=== PATIENT | female | born 1950 | race Caucasian/White ===

== ENCOUNTER → 2023-05-20 12:51 | Outpatient (CLI) | payer MEDICARE, OTHER, SELFPAY ==
--- NOTE | 2023-05-20 | DI.CT.S_ITS ---
PROCEDURE: CT KNEE LEFT WITHOUT CON INDICATIONS: ANKLE ARTHRITIS TECHNIQUE: Noncontrast 1-1.5 mm axial sections acquired from the mid-patella to the proximal tibia, with coronal and sagittal reformats. COMPARISON: None. FINDINGS: Image quality: Excellent. Bones: Postsurgical changes are seen from a medial unicompartmental arthroplasty. Metal hardware components are in expected positions without signs of loosening. There is generalized osteopenia. No acute osseous fracture is seen. No suspicious intraosseous lesion. Uyxj-mt-rmwxwbce joint space narrowing is seen in the lateral femorotibial and patellofemoral compartments. There is mild patella jonathon. Soft tissues: Trace joint effusion. Chondrocalcinosis. However, the articular cartilages, menisci, ligaments, and tendons are not well evaluated on standard CT. No significant medial popliteal cyst is seen. The musculature surrounding the knee is age-appropriate in bulk. IMPRESSION: 1. Postsurgical changes from medial unicompartmental arthroplasty. No CT signs of hardware complication or acute fracture. 2. Chondrocalcinosis. Differential diagnosis includes but is not limited to CPPD, hyperparathyroidism, and hemochromatosis. 3. Qqvq-ku-jcplztls osteoarthrosis in the lateral femorotibial and patellofemoral compartments. 4. Patella jonathon. Approved by: eH Bowen M.D. on 05/21/2023 at 8:54
--- NOTE | 2023-05-20 13:08 | DI.CT.S_ITS ---
PROCEDURE: CT ANKLE LEFT WITHOUT INDICATIONS: ANKLE ARTHRITIS TECHNIQUE: Noncontrast 1-1.5 mm axial sections acquired from above the tibiotalar joint to the bottom of the calcaneus, with coronal and sagittal reformats. COMPARISON: [facility], CR, XR ANKLE 3+ VIEWS LEFT, 03/15/2023, 11:18. [facility] [place], CR, XR ANKLE 3 VIEWS WEIGHT BEARING LEFT, 04/06/2023, 13:22. FINDINGS: Image quality: Excellent. Bones: Severe joint space narrowing is seen at the mortise joint with subchondral sclerosis, marginal osteophyte formation, and remodeling of the articular surfaces. An ossification is noted along the anterior aspect of the distal fibula that is likely related to prior trauma versus secondary degenerative changes. Moderate to severe degenerative changes are seen at the posterior subtalar facet. There is suspected hindfoot valgus with degenerative changes between the distal fibula and the superolateral aspect of the posterior calcaneus. There is mild diffuse joint space narrowing throughout the remainder of the hindfoot and midfoot. Severe degenerative changes are seen at the 1st metatarsophalangeal joint and metatarsal sesamoid degenerative changes are noted. Scattered degenerative changes at the lesser metatarsophalangeal joints and the interphalangeal joints of the toes. Bones are osteopenic. Soft tissues: Mild nonspecific subcutaneous edema surrounding the ankle. Chondrocalcinosis. The articular cartilages, ligaments, and tendons are not well evaluated with standard CT. 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 Achilles tendon appears mildly thickened. Osteophyte formation is seen in the region of the tarsal tunnel with superficial displacement of the posterior tibial neurovascular bundle. There is associated narrowing of the groove for the flexor hallucis longus tendon at the posterior medial talus. The intrinsic foot musculature is age-appropriate in bulk. IMPRESSION: 1. Severe mortise joint osteoarthrosis with remodeling of the articular surfaces and resulting hindfoot valgus. Moderate to severe degenerative changes are seen at the posterior subtalar facet and there are degenerative changes between the distal fibula and the superolateral calcaneus. 2. Severe 1st metatarsophalangeal osteoarthrosis. Mild degenerative changes are seen throughout the remainder of the foot. 3. Osteophyte is seen projecting into the tarsal tunnel with displacement of the posterior tibial neurovascular bundle and narrowing of the groove for the flexor hallucis longus tendon. Recommend correlation for neurovascular or tendon impingement. 4. Suspected longitudinal split tearing of the peroneus brevis tendon at the level of the distal fibula, although the tendons are not well evaluated with CT. 5. Chondrocalcinosis. Approved by: He Bowen M.D. on 05/21/2023 at 9:03
[2023-05-20 15:01] LABS: Add Manual Diff / Slide Review NO; Basophils Absolute Auto 100 /uL (0-100); Basophils Percent Auto 0.6 % (0-2); Eosinophils Absolute Auto 100 /uL (0-450); Eosinophils Percent Auto 1.2 % (2-4); Hematocrit 38.2 % (36-46); Hemoglobin 12.9 g/dL (12.0-16.0); Lymphocytes Absolute Auto 2500 /uL (1100-4500); Lymphocytes Percent Auto 30.9 % (25-40); Mean Corpuscular HGB Conc 33.7 % (30-36); Mean Corpuscular Hemoglobin 29.8 PG (26-34); Mean Corpuscular Volume 88.4 fL (80-100); Monocytes Absolute Auto 700 /uL (0-900); Monocytes Percent Auto 8.6 % (3-14); Neutrophils Absolute Auto 4700 /uL (1500-7000); Neutrophils Percent Auto 58.7 % (50-75); Platelet Count 350 X10^3/uL (150-400); Red Blood Cell Count 4.32 X10^6/uL (4.0-5.2); Red Cell Distribution Width 13.9 % (11.6-14.8)
[2023-05-20 15:16] LABS: Hemoglobin A1C% w Est Avg Glu 5.6 % (4.0-6.0)
[2023-05-20 15:25] LABS: Albumin 4.3 g/dL (3.5-5.0); Albumin Globulin Ratio 1.3 (1.0-2.8); Alkaline Phosphatase 82 U/L (38-126); Aspartate Aminotransferase 41 IU/L (14-36); BUN Creatinine Ratio 15.2 (6-22); Bilirubin Total 0.9 mg/dL (0.2-1.3); Blood Urea Nitrogen 10 mg/dL (7-17); Calcium 9.7 mg/dL (8.4-10.2); Chloride 103 mmol/L (98-107); Cholesterol 156 mg/dL (140-199); Estimated Glomerular Filt Rate > 60 mL/min (>60); Globulin 3.4 g/dL (1.7-4.1); Glucose 93 mg/dL (80-110); HDL Cholesterol 59 mg/dL (40-60); HEMOLYSIS < 15 (0-50); LDL Cholesterol Calculated 80 mg/dL (<100); Total Protein 7.7 g/dL (6.3-8.2); Triglycerides 83 mg/dL (35-150); Uric Acid 4.7 mg/dL (2.5-6.2)
[2023-05-20 15:41] LABS: Vitamin D 25 Hydroxy (D3) 75.7 ng/mL (30.0-100.0)
[2023-05-20 15:48] LABS: Free T3, Triiodothyronine Free 4.84 pg/mL (2.77-5.27); Free T4, Direct Thyroxine 1.33 ng/dL (0.78-2.19)
[2023-05-20 16:10] LABS: Thyroid Stimulating Hormone < 0.015 uIU/mL (0.47-4.68)
[2023-05-20 16:48] LABS: Appearance Urine UA CLEAR; Bilirubin Urine UA NEGATIVE (NEGATIVE); Color Urine UA YELLOW; Glucose Urine UA NEGATIVE (Negative); Ketones Urine UA NEGATIVE (NEGATIVE); Leukocyte Esterase Urine UA NEGATIVE (NEGATIVE); Nitrite Urine UA NEGATIVE (Negative); Occult Blood Urine UA NEGATIVE (Negative); Protein Urine UA NEGATIVE (Negative); Specific Gravity Urine UA <=1.005 (1.000-1.035); Urobilinogen Urine UA 0.2 E.U./dL (0.2)
[2023-05-20 17:01] LABS: RBC Urine 0-1/HPF (0-5/HPF); WBC Urine 0-1/HPF (0-5/HPF)
[2023-05-20 17:02] LABS: Bacteria Urine None Seen; Culture Indicated Urine Cult Not Indicated; Squamous Epithelial Cell Urine 0-1 /HPF (0-5/HPF)
[2023-05-20 17:03] LABS: Alanine Aminotransferase 40 IU/L (<35); Carbon Dioxide 20 mmol/L (22-32); Creatine Kinase 70 U/L (30-135); Potassium 4.2 mmol/L (3.4-5.1); Sodium 136 mmol/L (137-145)
== END ==
PROVIDERS: Family Provider Nurse Practitioner Family; PCP Internal Medicine; Referring Provider Orthopaedic Surgery Foot and Ankle Surgery; Visit Provider Orthopaedic Surgery Foot and Ankle Surgery
DX: Z01.818 Encounter for other preprocedural examination (principal); Z01.812 Encounter for preprocedural laboratory examination; Z00.00 Encounter for general adult medical examination without abnormal findings; M17.12 Unilateral primary osteoarthritis, left knee; M11.262 Other chondrocalcinosis, left knee; M22.8X1 Other disorders of patella, right knee; M19.072 Primary osteoarthritis, left ankle and foot; M11.272 Other chondrocalcinosis, left ankle and foot; M21.072 Valgus deformity, not elsewhere classified, left ankle; M25.50 Pain in unspecified joint; R74.8 Abnormal levels of other serum enzymes; R73.9 Hyperglycemia, unspecified; I10 Essential (primary) hypertension; R63.4 Abnormal weight loss; K57.92 Diverticulitis of intestine, part unspecified, without perforation or abscess without bleeding; E03.9 Hypothyroidism, unspecified; R73.01 Impaired fasting glucose; L40.9 Psoriasis, unspecified; Z79.899 Other long term (current) drug therapy; Z96.652 Presence of left artificial knee joint
CPT/HCPCS: 36415; 73700; 80053; 80061; 81001; 82306; 82550; 83036; 84439; 84443; 84481; 84550; 85025; 93005; 93010

== ENCOUNTER 2023-07-14 07:00 | Day surgery (SDC) | payer MEDICARE, OTHER, SELFPAY ==
[2023-07-12 14:48] VITALS: BMI 29.0
[2023-07-14] VITALS (19 sets, daily range): BP systolic 98–112; BP diastolic 44–65; PULSE 79–103; RESP 12–20; TEMP 36.2–37.3; O2SAT 92–98; BMI 29.0
--- NOTE | 2023-07-14 | DI.RAD.S_ITS ---
PROCEDURE: XR ANKLE LT MIN 3V INDICATIONS: TOTAL ANKLE ARTHOPLASTY TECHNIQUE: Fluoroscopic guidance utilized for a left ankle arthroplasty. COMPARISON: None. FINDINGS: Fluoroscopic images submitted for a left ankle arthroplasty. Please see operative note for further discussion. IMPRESSION: Fluoroscopic guidance. Dictated by: Sridhar Hudson M.D. on 07/14/2023 at 13:37 Approved by: Sridhar Hudson M.D. on 07/14/2023 at 13:37
--- NOTE | 2023-07-14 07:58 | PM.PREOP ---
Pre-operative Note Interval Note History & Physical reviewed/Exam performed by Physician: Yes Changes to H&P: No
--- NOTE | 2023-07-14 08:06 | P.OP_ITS ---
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 She is failed extensive conservative treatment. She has been indicated for total ankle arthroplasty. She also has an Achilles contracture. We discussed risks benefits and alternatives of the procedure including associated procedures with the ankle arthroplasty including lengthening of the Achilles tendon or gastroc, support of the malleoli and possible ligamentous balancing procedures. The risks and benefits of the procedure have been discussed with the patient and given the opportunity to ask questions. The risks of surgery include but are not limited to infection, fracture, loosening, persistence of pain, damage to nerves and blood vessels, wound healing problems, adjacent joint arthritis, DVT, PE, need for additional procedures, generalized dissatisfaction with the procedure, cardiopulmonary complications and . The patient expressed a thorough understanding of the risks and benefits of surgery and has elected to proceed. Consent was signed in the office. During the operation, the services of a physician surgical services asst were medically indicated and necessary to provide the exposure of the operative site for the surgical procedure and to maintain the limb in a proper position to carry out the operation safely and efficiently. Without a qualified assistant project engineer being present this would extended the operative procedure and made the procedure technically more difficult to perform. Surgeon: Ivett Allred Noteman: Willie Fowler Anesthesia Type: General, Peripheral nerve block and Local Operative Notes Findings: End-stage valgus ankle arthritis left ankle Achilles contracture left ankle Numerous ossicles from previous sprains. After gutter debridement there was laxity of the lateral ligaments this was reconstructed with a modified Brostrom Ruelas procedure through a separate incision Closure Type: primary Specimen(s): none sent Prosthetic devices, grafts, tissues, transplants, or devices: Chalo inbone total ankle arthroplasty Inbone tibia size 4 long, left Inbone stem top stem 16 mm, mid stem 16 mm, mid stem 16 mm, base 18 mm Inbone talus size size 4 with 10 mm stem Polyethylene 11 mm size 4, sulcus Arthrex 3.0 x 14.5 suture anchor Estimated Blood Loss (mL): 100 Tourniquet time (min): 130 Procedure in detail: The patient was seen in the preoperative area the site of surgery was marked informed consent confirmed. Final questions were answered. The patient was also seen by the anesthesiologist and a peripheral nerve block was placed for postoperative pain control. The patient was brought back to the operating room by the anesthesia team positioned supine on the operative table. All bony prominences were well padded. A well-padded thigh tourniquet was placed. The ipsilateral thigh bump was placed. General anesthesia was administered. A Hanson catheter was placed for the duration of the procedure. This was removed at the end of the procedure. The left lower extremities prepped and draped in the standard sterile fashion with a prescub then standard prep. The left lower extremity was then draped in the standard sterile fashion. Formal time-out procedure was performed confirming the patient's side and site of surgery administration of appropriate preoperative antibiotics which in this case were 2 g of Ancef. All were in agreement. Implants were in the room and available. Tendo-Achilles lengthening. Prior to tourniquet elevation the leg was evaluated. There was a tendo-Achilles contracture with dorsiflexion to 0 not significantly changing with knee flexion. Decision was made for tendo-Achilles lengthening. Three small incisions were made at 2 cm intervals along the midline of the Achilles for a triple radha section Achilles tendon lengthening. Incision was made down through the skin to the level of the Achilles tendon. The distal radha section was taken dividing through the tendon to the lateral side. The separate incision for the mid radha transection was taken to the medial side and the most proximal incision again taken to a radha section to the lateral side. Following this procedure the ankle was dorsiflexed with a clear and audible stretch staining approximately 20? of dorsiflexion with the knee extended. Attention was then turned to the left lower extremity an Esmarch bandage was used for exsanguination the tourniquet was elevated to 250 mmHg and stayed there for 130 minutes. Standard anterior approach to the ankle was drawn out on the leg approximately 12 cm incision was taken about 1 cm lateral to the tibial crest and extended longitudinally bisecting the tibiotalar joint extending to the talonavicular joint. This was taken down through the skin and subcutaneous tissues care was taken to isolate and protect the superficial peroneal nerve branch. Next the extensor retinaculum was opened and tagged with an 0 Vicryl for later repair. The EHL tendon sheath was opened and the EHL and neurovascular bundle were retracted laterally and the tibialis anterior was capped into its sheath and retracted medially. This brought us down directly on the anterior tibia. Dissection was taken all the way to the talonavicular joint to expose the talus. The capsule was divided and retracted. The joint demonstrated end-stage tibiotalar arthritis with large anterior distal tibial spurs and a medial large talar spur. There was a separate large distal tibia ossicles anteriorly and down in the lateral gutter. The Bovie cautery and elevators were used to remove the periosteum along the anterior tibia and expose the joint. Gelpi and Weitlaner retractors were used to protect the EHL and neurovascular bundle. The talus was mobilized. There was some asymmetric wear with valgus talar tilt narrowing on the lateral side. The inbone prophecy guide was then fit to the tibia and pinned in place. This was checked against the preoperative plans and on intraoperative fluoroscopy. Then pins were completed. The guide was removed and the cutting guide placed. The initial tibial cut were completed after the anti rotation notch was drilled. The anterior part of the tibial cut was removed then attention was turned to the talus. The talus guide was fit to the bone and checked on the preoperative plan and intraoperative x-ray then pinned in place. This was then removed and the cutting guide placed. The talus was cut according to the plan over resecting medially and under resecting laterally. Once this was removed rongeur pituitaries and osteotomes and the corner gutters were once again used to complete removal of the posterior part of the tibia. Once this was debrided the next guide was placed along with the jig and this was secured with the foot in dorsiflexion. The trocar was marked for the entry point on the plantar foot and a 1 cm incision made blunt dissection was carried down to the calcaneus. The trocar and cannula were advanced to the bone and then the 6 mm opening drill was used to pick drill through the calcaneus and talus and this was aligned on AP and lateral planes in the tibia and under careful fluoroscopic visualization this was directed central in the tibial canal and drilled for 51 mm. This corresponded with the planned implant. Next the opening drill was removed and the 1st Reamer was placed in through the anterior incision and advanced to 51 mm this was a 12 then followed by a 14 mm Reamer then a 16 just distally for the base and then an 18 was used just to create a little spare room for the base. Once reaming was completed the wound was irrigated. The Sizer for the for long was confirmed. Next the stems were placed starting with the top 16 then to mid 16 and then 18 bases were assembled in the standard fashion and advanced under fluoroscopic guidance then the base plate was secured in place. Excellent alignment was obtained on AP and lateral imaging. Following this attention was turned back to the talus the talar peg sites were overdrilled with the trial in place and the central stem was then drilled. A size 4 fit well anterior to posterior and lined align medial and lateral. The final talus was then opened and impacted in place in the standard fashion. Trial poly was placed. There was noted to be still some gutter impingement medial and laterally along with some of the separate ossicles that were noted on the preoperative CT scan. Sagittal saw was brought in again to clean up the gutters medially and laterally and the pituitary rongeur was used to remove the gutter debris this included contouring the distal fibula. As suspected after this there was some laxity in the lateral ligaments which was preoperative via the anticipated based on the patient's multiple sprains and numerous ossicles. And a plan was made for Brostrom Ruelas a ligamentous balancing. First the final poly was placed with a 11 mm poly that demonstrated excellent range of motion and gutter appearance. There was ample bridge of the medial malleolus and did not require reinforcement. Lateral ligament balancing, modified Brostrom procedure: Separate incision was made laterally just posterior to the distal fibula in line with the alignment of the lateral ligaments the periosteum off for the fibula was isolated and reflected there was a large separate loose ossicle at the distal fibula that was removed. The lateral ligaments were tenuous as expected. A 3.0 suture anchor from the Arthrex set was then used to perform the lateral ligament reconstruction this was placed into the talus bone and then brought through drill holes with a 2-0 drill through the distal fibula and tied over a bone bridge. Remaining suture was looped back through the remnants of the lateral ankle ligaments and then tied over the previous repair for a multi strand reconstruction. Once this was completed the ankle was tested through range of motion as talar tilt was stable. Ankle dorsiflexion plantar flexion were excellent least 15? of dorsiflexion and 40? of plantar flexion. Final fluoroscopic x-rays in AP mortise and lateral were obtained. By this time tourniquet had been released there was hemostasis. The wounds were thoroughly irrigated. The incisions were closed laterally at the Brostrom Ruelas site with 3-0 Vicryl 4-0 Monocryl and 3-0 nylon suture. Plantar foot incision was closed with 3-0 nylon. The ankle arthrotomy incision was closed with 0 Vicryl in the capsule. 2-0 PDS in the extensor retinaculum. 4-0 Monocryl subcutaneously and 3-0 nylon in the skin. 22 cc of 0.25% Marcaine with epinephrine were injected for local anesthetic. A well-padded sterile dressing was applied with Xeroform gauze Webril bulky Zachary es cotton and posterior and a U splint. The patient was awoken from anesthesia and taken to recovery unit in good condition there were no immediate complications from this procedure. All counts were correct. L Complications: none Post-operative Condition: stable Disposition: PACU Plan for aftercare: Nonweightbearing or touchdown for balance left lower extremity Keep splint in place until follow up in clinic in 2 weeks for wound check. We will use Lovenox 40 mg subcutaneous daily for DVT prophylaxis x4 weeks then switch to aspirin 325 daily for 2 more weeks
[2023-07-14] MEDS: ACETAMINOPHEN 325 MG TABLET 975 MG PO (08:22)
[2023-07-14] MEDS: LACTATED RINGERS 1,000 ML 42 ML IV ×3 (08:24→15:34)
[2023-07-14] MEDS: CEFAZOLIN 2 GM/100 ML PREMIX 100 ML IV ×2 (09:15→18:14)
[2023-07-14] MEDS: TRANEXAMIC ACID 1,000 MG in SODIUM CHLORIDE 0.9% 100 ML 200 MG IV (09:30)
--- NOTE | 2023-07-14 09:37 | SUR.OPER ---
Addendum entered by Trinh Crowley R.N. 07/14/23 11:22: Safety belt at abdomen, not thigh Original Note: Supine on padded OR bed, head on pillow, arms secured on padded arm boards at <90 degrees abduction, legs uncrossed, safety belt at thigh, tape over blanket over non-operative leg, operative leg bumped with bath blankets.
[2023-07-14] MEDS: BUPIVACAINE 0.25% W/ EPI 30 ML VIAL 60 ML INJ (09:41)
--- NOTE | 2023-07-14 14:28 | PC.NURSE ---
Day shift: Not in AC room at this time (1430).
--- NOTE | 2023-07-14 14:51 | PC.NURSE ---
Day shift: In room from PACU at approx 1445. A&Ox4. Denies any pain or nausea. Good cap refill and warm toes left foot. Cast/splint/dressing is CDI. Spouse in room for support. Oriented to room and call light. Agrees to not get OOB w/o help from staff. Tolerating SCD on rt calf. Instructed on I.S. use.
[2023-07-14] MEDS: SENNOSIDES 8.6 MG TABLET 17.2 MG PO (20:37)
[2023-07-14] MEDS: DOCUSATE 100 MG CAPSULE PO (20:37)
[2023-07-14] MEDS: FAMOTIDINE 20 MG TABLET PO (20:37)
[2023-07-14] MEDS: PRAVASTATIN 20 MG TABLET 40 MG PO (20:37)
--- NOTE | 2023-07-14 22:30 | PC.NURSE ---
Addendum entered by Annalee Fairbanks R.N. 07/15/23 05:15: Is again rating her pain as 10/10 although when entering room found her looking at her phone and making no facial grimacing and is no longer crying and had not called for additional pain meds although had told her to do so if oxycodone had not taken effect. Medicated with Dilaudid. Addendum entered by Annalee Fairbanks R.N. 07/15/23 04:11: Medicated earlier with Dilaudid for 10/10 pain as previous oxycodone did not help. Slept for awhile and now again crying and states pain is back to 10/10 and feels like her leg is on fire and like there is sandpaper going over skin. Leg is elevated on pillow. Medicated with 10mg oxycodone and ice pack applied and reassured that if pain not better in 30-45 minutes she can also have Dilaudid again. Original Note: Patient is alert and oriented. Breath sounds CTA with RA sat of 96%. HRR w/low BP of 98/49 but is asymptomatic; BP meds held. Denied nausea. BT present but has not yet passed flatus. Voiding on BSC and denied any dysuria. Is able to move self in bed and getting up to BSC using walker with 1 assist as is touch down weight bearing on left LE. Is still unable to feel touch from knee down to toes on left but is able to move toes down but not up. Toes are warm to touch with good capillary refill. Denied pain except on posterior left LE at top of splint; pillow placed to alleviate pressure to area. Is wearing calf SCD to right LE. Fall risk score is moderate and bed alarm is activated although she does call appropriately.
[2023-07-15] MEDS: CEFAZOLIN 2 GM/100 ML PREMIX 100 ML IV (00:51)
[2023-07-15] MEDS: OXYCODONE IR 5 MG TABLET PO (01:13)
[2023-07-15] MEDS: ACETAMINOPHEN 325 MG TABLET 650 MG PO ×4 (02:31→20:02)
[2023-07-15] MEDS: HYDROMORPHONE 0.5 MG INJ IV ×2 (02:31→05:11)
[2023-07-15 02:54] VITALS: BP 106/55; PULSE 83; RESP 17; TEMP 36.2; O2SAT 95
[2023-07-15] MEDS: OXYCODONE IR 10 MG TABLET PO ×4 (04:05→18:31)
[2023-07-15] MEDS: LEVOTHYROXINE 25 MCG TABLET PO (06:21)
[2023-07-15] MEDS: THYROID, PORK 30 MG TABLET 75 MG PO (06:39)
[2023-07-15] MEDS: IBUPROFEN 600 MG TABLET PO ×3 (07:56→22:03)
[2023-07-15 08:00] VITALS: BP 111/61; PULSE 72; RESP 16; TEMP 37.1; O2SAT 95
[2023-07-15] MEDS: SPIRONOLACTONE 25 MG TABLET PO (10:05)
[2023-07-15] MEDS: AMLODIPINE 5 MG TABLET 10 MG PO (10:05)
[2023-07-15] MEDS: METOPROLOL IR 25 MG TABLET PO ×2 (10:05→20:03)
[2023-07-15 10:06] VITALS: BP 111/61; PULSE 72
[2023-07-15] MEDS: LOSARTAN 50 MG TABLET PO ×2 (10:06→20:03)
[2023-07-15] MEDS: FAMOTIDINE 20 MG TABLET PO ×2 (10:06→20:03)
[2023-07-15] MEDS: ENOXAPARIN 40 MG/0.4 ML SYRINGE SUBCUT (10:06)
[2023-07-15] MEDS: DOCUSATE 100 MG CAPSULE PO ×2 (10:07→20:03)
[2023-07-15] MEDS: polyethylene glycoL 3350 17 GM POWD.PACK PO (10:07)
--- NOTE | 2023-07-15 10:07 | PM.PNPO.1 ---
Subjective Subjective Interval history: Tanna is POD#1 s/ p left total ankle arthroplasty, left achilles tendon lengethening, Modified Brostrom Ruelas lateral ligament reconstruction by Dr. Allred. Patient expresses significant anxiety during out interview today about the bloody drainage coming through the posterior dressing. She also reports having severe pain stating that she is alarmed at the amount of pain she is having, worse than yesterday. Reassured patient that pain after this surgery is expected as is pain to be worse on POD#1 than immediately after surgery d/ nerve block wearing off. Pain is global in the left ankle but most severe on the lateral ankle. Patient has her post-op meds at home already. Has crutches, knee scooter and wheelchair at home as well to be used in the post-op periods while she is touch down weight bearing only. Lives with who is willing and able to provide addition care to patient during her recovery. Denies chest pain, SOB, fever, chills, nausea, vomiting. Exam Vital Signs (past 8 hours): - 07/15/23 02:54 07/15/23 08:00 07/15/23 10:06 Temperature 97.2 F L 98.7 F Pulse Rate 83 72 72 Respiratory Rate 17 16 Blood Pressure 106/55 L 111/61 111/61 Pulse Oximetry 95 95 Oxygen Flow Rate 0 0 Oxygen Delivery Method Room Air Oxygen Flow Rate 0 Narrative Exam Narrative: patient lying comfortably in bed during interview today Const General: cooperative, healthy appearing and comfortable Resp Effort & Inspection: normal respiratory effort and able to speak in complete sentences Cardio Rate: regular rate Other: Brisk capillary refill. Skin Other: Patient has a plaster splint with cast padding and two nilton bandages in place on her left lower leg. There is bloody drainage saturating through the cast padding and nilton bandage over the posterior ankle. Neuro General: patient alert, patient awake and patient oriented x3 Other: Sensation intact to all toes equally, bilaterally. Extrem Other: Wiggles all left toes equally. Calves soft and non-tender bilaterally. Psych Appearance: grossly normal Speech and Movement: speech and movement normal Objective Labs 07/15/23 10:42 [facility] Medical History (Updated 07/13/23 @ 08:20 by Mary Herrera RN) History of prosthetic unicompartmental arthroplasty of left knee (1997) Depression Psoriasis Hypothyroidism Goiter Osteoma Diverticulitis (04/19/18) Elevated LFTs Pyloric stenosis Impaired fasting glucose Sleep apnea HTN (hypertension) Surgical History (Updated 07/13/23 @ 08:20 by Mary Herrera RN) Hx of appendectomy (02/05/17) Hx of bilateral cataract extraction History of total right knee replacement History of total left knee replacement History of surgery Social History household members: spouse Smoking Status: Never smoker Assessment & Plan Post-op Postoperative Procedures: Procedures Operation Date: 07/14/23 08:45 Actual Procedure Side Surgeon p Total Ankle Arthroplasty, Ligamentous balancing Left Ivett Allred MD s Achilles Lengthening Left Ivett Allred MD Postoperative status narrative: Poor pain control The patients NILTON bandages were removed, most of the saturated cast padding was removed and replaced with ABDs and a new NILTON wrap was then placed around the splint. Postoperative plan narrative: 1) Keep cast/dressing clean and dry. May bathe - but cast/dressing must remain dry. 2) Continue multimodal pain control. Significant amount of time spent counseling patient on pain medication, expected pain after surgery and risks of opioids. She can use ice to the LLE bust must be careful to prevent melting ice from saturating into the splint/cast. I will change IV to PO hydromorphone in preparation for d/c and start IBU for additional pain control. 3) Touch down weight bearing only. Must use use crutches or a walker for ambulation. 4) Lovenox 40 mg subcutaneous daily injections starting postop day 1 for 4 weeks for DVT prophylaxis followed by ASA 325 QD for 2 weeks. Will plan to d/c home tomorrow to allow for on more wound/dressing check and give patient time to have better pain control before d/c to home w/ family.
--- NOTE | 2023-07-15 10:28 | PT.IIE ---
Current Diagnoses Primary osteoarthritis, unspecified ankle and foot (07/14/23) Surgery Performed Operation Date: 07/14/23 08:45 Actual Procedures p Total Ankle Arthroplasty, Ligamentous balancing (Left) - Ivett Allred MD s Achilles Lengthening(Left) - Ivett Allred MD Surgical History (Last Updated 07/13/23 @ 08:20 by Mary Herrera, RN) History of surgery History of total left knee replacement History of total right knee replacement Hx of appendectomy (02/05/17) Hx of bilateral cataract extraction Medical History (Last Updated 07/13/23 @ 08:20 by Mary Herrera, RN) Depression Diverticulitis (04/19/18) Elevated LFTs Goiter History of prosthetic unicompartmental arthroplasty of left knee (1997) HTN (hypertension) Hypothyroidism Impaired fasting glucose Osteoma Psoriasis Pyloric stenosis Sleep apnea Physical Therapy Inpatient Evaluation/Re-Eval M1 PT/OT-IP Prior Functional Status Start: 07/15/23 08:08 Freq: NEEDED Status: Active Protocol: Document 07/15/23 10:16 MB (Rec: 07/15/23 10:28 MB [id number]) Medical Review Prior Functional Status Medical History Reviewed Yes Diet/Fluid Consistency Regular Communication WNLs, per dietary, pt had a 30 lb unintentional weight loss Mobility and Gait Used Loft Strand crutches and was mod I, several sets of stairs in her 4 level home in [place] Activities of Daily Living and IADL's Mod I, drove Social History Household Members spouse Living Arrangements House Number of Floors (Floors) 3 or More Floors Number of Stairs To Enter/Railing? 4 sets of steps and she will have hospital bed and BR on entrance level at d/c. Her set up a temporary ramp for her to wheel up at d/ c Home Environment Standard Height Toilet,Ramp Home Equipment Four Wheel Walker,Crutches, Manual Wheelchair,Raised Toilet Seat w/Armrests, Hospital Bed Employment Status Retired M2 PT-IP Current Condition Start: 07/15/23 08:08 Freq: NEEDED Status: Active Protocol: Document 07/15/23 10:16 MB (Rec: 07/15/23 10:28 MB [id number]) Physical Therapy Current Condition Current Condition Evaluation Date 07/15/23 Treatment Diagnosis Left total ankle arthroplasty M3 PT-IP Subjective Start: 07/15/23 08:08 Freq: NEEDED Status: Active Protocol: Document 07/15/23 10:16 MB (Rec: 07/15/23 10:28 MB [id number]) Subjective Physical Therapy Visit Type Type Initial Evaluation Visit Start Time 09:18 Visit Stop Time 09:41 Notes And then 10' after rounds to obtain RW orders, obtain the walker and set it up for pt and then to have her sign, etc Number of SEED PRODUCTION FIELD SUPERVISOR Visits 0 Therapy Pain Assessment Pain When Pain Assessed At Rest Pain Present Pain Present Pain Reported Location Left Ankle Intensity 15 Scale Used Numeric (0 - 10) Description Aching,Acute Pain Management Techniques Distraction,Elevation, Modification of Treatment,Re- positioning,Timing of Activity with Medications M4 PT-IP Mobility and Gait Start: 07/15/23 08:08 Freq: NEEDED Status: Active Protocol: Document 07/15/23 10:16 MB (Rec: 07/15/23 10:28 MB [id number]) PT-Bed Mobility Assessment Rolling Type of Rolling Roll to Left Level of Assist Independent Supine to Sit Supine to Sit Independent,Head of Bed Elevated Scooting Scooting to Edge of Bed Independent PT-Transfer Assessment Sit to and From Stand Sit to and from Stand Contact Guard Assistance,1 Person Assistance,Use of Upper Extremities Equipment Transfer Assistive Device Gait Belt,Front Wheeled Walker Orthotic/Prosthetic Devices or Brace: No Transfers Transfer Destination Chair Transfer Technique Hop stepping Transfer Ability Level of Assist Contact Guard Assistance,1 Person Assistance,Use of Upper Extremities Comments Mobility Comments Pt c/o high pain but moves quite well: it is likely that she has a history of high pain from psoriatic arthritis and left foot pain. PT mostly educates pt on NWB to TDWB states and benefits of RW over rollator and crutches to increase SNEHA and to improve I with short hop steps and transfers and pt tolerates training well Gait Assessment Gait Gait Assistance Required: Contact Guard Assist Distance (Feet) 5 Able to Maintain Weight Bearing Status Yes During Gait Assistive Devices Assistive Device Gait Belt,Front Wheeled Walker Orthotic/Prosthetic Devices or Brace: No Gait Deviations General Gait Pattern Antalgic Factors Limiting Gait Function Factors Limiting Gait Function Decreased Activity Tolerance, Difficulty Following Directions,Limited Range of Motion,Pain,Poor Balance,Poor Safety Awareness Comments Gait Comments Pt does well following PT commands for WB through arms so that she only has to do a gentle and small hop to move forward and backwards and for left leg position as far as keeping it in front of her, keeping SNEHA inside walker and sliding it if needed with retropulsion: TDWB PT-Balance Assessment Sitting Balance and Reactions Static Sitting Balance Ability Good Dynamic Sitting Balance Ability Good Standing Balance and Reactions Static Standing Balance Ability Good Dynamic Standing Balance Ability Fair Device Used RW M5 PT-IP Objective Assessments Start: 07/15/23 08:08 Freq: NEEDED Status: Active Protocol: Document 07/15/23 10:16 MB (Rec: 07/15/23 10:28 MB [id number]) Orientation Orientation/Cognition Level of Alertness Alert Orientation Name,Age,Birthday,Month,Date, Year,Day of Week,Place, Situation Language Function Ability No Deficits Noted Safety Awareness Decreased Safety Awareness Memory Description No Deficits Noted Gross Range of Motion Upper Extremity ROM Assessment Within Functional Limits Lower Extremity ROM Assessment Left Impaired Impairments Left ankle in splint post-op, other LE joints functional Strength Upper Extremity Strength Assessment Within Functional Limits Lower Extremity Strength Assessment Left Impaired Hip WNLs Knee WNLs Ankle In splint M6 PT-IP Treatment Start: 07/15/23 08:08 Freq: NEEDED Status: Active Protocol: Document 07/15/23 10:16 MB (Rec: 07/15/23 10:28 MB [id number]) Physical Therapy Treatment Education Education Provided Weight Bearing Status,Safety Other Treatments Other Treatment Performed Benefits of RW and PT obtains order and delivers to the pt room M7 PT-IP Assessment and Plan Start: 07/15/23 08:08 Freq: NEEDED Status: Active Protocol: Document 07/15/23 10:16 MB (Rec: 07/15/23 10:28 MB [id number]) PT Summary Assessment and Plan Potential Rehabilitation Potential Good Status of Condition at Evaluation Evolving Summary Impairments Pain,Balance,Coordination,Bed Mobility,Transfers,Gait, Activity Tolerance Progress Towards Goals Progressing Toward Goals Assessment Summary Pt is a delightful lady who despite c/o 15/10 pain in her left ankle, mobilizes quite well. NWB to TDWB LLE and use of RW are new to her and so most PT education, demo and mobility training today with regard to these. Pt does well maintaining WB with limited mobility today of about 5' forward and 5' backwards. She has serosangious drainage at heel area of splint and she cannot tolerate limb in dependent position long. It appears that pain management is her biggest issue at this time. Recommend HHPT and nsg consult at d/c. Goals Bed Mobility Goal Independent Transfer Goal Independent,Front Wheeled Walker Gait Goal Independent,Front Wheel Walker Gait Distance 25 Days to Meet Goals 2 Frequency of Treatment Frequency Of Treatment Once a Day Treatment Plan Physical Therapy Treatment Plan Bed Mobility Training,Transfer Training,Gait Training, Therapeutic Exercise,Balance Retraining,Post Op Education, Discharge Planning,Hot or Cold Pack Weight Bearing Status Weight Bearing Status Touch Down Weight Bearing Allowed Weight Bearing Amount (enter % NWB to TDWB LLE, spint for 2 or #) (%) weeks Recommendations To Nursing Amount of Assist Needed 1 Person Assist Discharge Recommendations PT Discharge Recommendations Home with 30/11 Assist Available,Home Health Other Discharge Recommendations HHPT and nsg as appropriate Transportation Needs at Discharge Private Vehicle
--- NOTE | 2023-07-15 10:51 | DIET.CONS ---
Addendum entered by Tanisha Crowley 07/15/23 13:22: -The patient is at much higher risk for medical and surgical complications because of their malnutrition. This increases the difficulty and complexity of medical and surgical interventions and increases the chances of poor outcomes such as morbidity and mortality. Original Note: Dietary Consultation Note Admission Date: Assessment: 73 y F admitted post op of total ankle arthroplasty. Nutrition consulted for 30 pound weight loss, unintentional. Met with pt at bedside. Pt reports reduced appetite and intake with unintentional weight loss beginning end of March 2023. Pt noted around that time a family member . Pt's recent dietary recall: -Breakfast 8 AM: coffee, black -Lunch 12-1 PM: salad, soup, or leftovers -Dinner 6 PM: a few bites of: meat (elk) and vegetables or eggs or cereal -1 glass of wine per day in evening RD performed nutrition focused physical exam showing results of: -moderate muscle loss in deltoid -severe muscle loss in interosseous muscle Ht: 167.64 cm Wt: 81.647 kg BMI: 29.0 UBW: 90.9 kg per pt report Last BM: 07/13/23 (07/14/23 15:34) MNA: 10 Zenon Score: 21 Diet: 07/14/23 Dinner General (Regular) Diet Diet Modifications: Food Texture: Level 7 - Regular Liquid Consistency: Level 0 - Thin Nutrition Percent Meal Consumed 100% 07/14/23 18:10 Nutrition Diagnosis: Severe chronic protein calorie malnutrition r/t reduced appetite as evidenced by < 75% PO of estimated energy requirements for > 1 month, 10% weight loss within 3 month, moderate muscle loss in deltoid, severe muscle loss in interosseous Interventions: Provided educ on increasing intake, emphasizing protein intake, throughout day in small frequent amounts and use of ONS for recovery. Provided Ensure Original BID. EER: [id number] kcals per day (20-24 kcals/kg) 110-125 grams protein per day (1.5-1.7 gram/kg of upper IBW) Monitoring/Evaluations: PO, ONS tolerance, f/u in 1-2 days Electronically Signed by: Tanisha Crowley 07/15/23 10:51 Clinical Dietitian [address] [address]
[2023-07-15 10:54] LABS: Hematocrit 30.7 % (36-46); Hemoglobin 10.3 g/dL (12.0-16.0)
[2023-07-15] MEDS: HYDROMORPHONE 2 MG TABLET PO ×2 (11:43→20:03)
--- NOTE | 2023-07-15 13:07 | PT-IP ANOTE ---
PT increases frequency to twice daily.
--- NOTE | 2023-07-15 13:53 | CM.DANOTE ---
Initial DCP Assessment Visit Note Reviewed EMR and team rounds for pt's medical status and initial anticipated home d/c needs. Met with pt at bedside to introduce self and role, pt was found to be alert/oriented/able to discuss preferences for d/c. Pt resides independently in her own home with spouse in [place]. She has all necessary DME at home and a plan with Ortho for OP f/u and OP therapies. Payor: Medicare Attending: Dr. Allred Pt is a 73 year-old F placed in [facility] [place] following her L-ankle total arthroplasty surgery. Pt had a hx of worsening ankle pain, falls, which did not improve with injections or conservative methods of pain relief. Pt uses forarm crutches for mobility support, but no other DME at this time. She is independent at baseline, spouse will be able to provide for assistance and care needs once ready for d/c. Ortho d/c plan includes non-weight bearing for 2-4 weeks, then begin progressive weight bearing in a surgical boot. She will also meet with Ortho in 2-weeks for OP wound check. DCP will continue to follow and assist with any further identified d/c needs. Anticipate d/c tomorrow. Discharge Planning/Care Management CM Discharge Assessment Start: 07/15/23 13:51 Freq: Status: Active Protocol: Document 07/15/23 13:51 DPL (Rec: 07/15/23 13:53 DPL [id number]) Discharge Planning Assessment Assigned Web Engineer RAJI Valiente Advance Directives? No History Provided By Patient,Medical Record Has Patient been admitted in last 30 No days? Prior Living Arrangements House Household Members spouse Type of transporation used prior to Drives own vehicle admit Independent with ADL's Yes Is patient alert and oriented? Yes Caregiver for Another No DME Already Rented / Owned Hospital Bed,Wheelchair, Elevated Toilet Seat,FWW / Walker,Cane,Crutches Patient/Family Preference OP PT Therapy Barriers to Discharge No Community Services Physical Therapy Transportation Arrangement Family Referrals Initiated None needed Whiteboard Updated in Patient Room with Yes name and ext. # of Web Engineer Review Status In Process Please Provide Date Initial DC 07/15/23 Assessment Was Performed Pre-Anesthesia Assessment Start: 07/12/23 14:48 Freq: Status: Complete Protocol: Document 07/12/23 14:48 CAB (Rec: 07/12/23 14:53 CAB [id number]) Pre-Anesthesia Assessment Patient Information Reviewed Via Chart Review Primary Care Provider Giuliana Constantino Comment PCP clearance 05/31/23 scanned and in surgery folder Medical Clearance Received Yes Seen Specialist in Last 12 Months Yes Specialist Seen Orthopedist Primary Language Amharic Gristmiller Required No Height 167.64 cm Weight 81.647 kg Body Mass Index (BMI) 29.0 Anesthesia Review Requested No Tnt Powder Worker No Patient is completely paralyzed or No completely immobile Mental Status Oriented to own ability Hx Sleep Apnea Yes: Has CPAP, compliance unknown Currently Taking a Beta Sumanth Yes: Metoprolol Anti-Coagulant Therapy No Cardiac Testing No Hx Pacemaker/ICD No Pacemaker Rep Required? No Cardiac Clearance Received Not Applicable Urinary Catheter Present No Hx Urinary Self Catheterization No Diabetes No: Hx of impaired fasting glucose Patient No Lactating No Presence of External or Internal Medical Yes: Bilat knee prosthesis, Devices bilat eye IOLs Marital Status Lives With spouse Patient Discharge Plan Description Return Home
--- NOTE | 2023-07-15 14:02 | PT.IPTN ---
Current Diagnoses Primary osteoarthritis, unspecified ankle and foot (07/14/23) Surgery Performed Operation Date: 07/14/23 08:45 Actual Procedures p Total Ankle Arthroplasty, Ligamentous balancing (Left) - Ivett Allred MD s Achilles Lengthening(Left) - Ivett Allred MD Physical Therapy Treatment Note M2 PT-IP Current Condition Start: 07/15/23 08:08 Freq: NEEDED Status: Active Protocol: Document 07/15/23 10:16 MB (Rec: 07/15/23 10:28 MB [id number]) Physical Therapy Current Condition Current Condition Evaluation Date 07/15/23 Treatment Diagnosis Left total ankle arthroplasty M3 PT-IP Subjective Start: 07/15/23 08:08 Freq: NEEDED Status: Active Protocol: Document 07/15/23 14:25 TS (Rec: 07/15/23 14:40 TS [id number]) Subjective Physical Therapy Visit Type Type Treatment Note Visit Start Time 14:02 Visit Stop Time 14:25 Notes Spouse in room Number of HOISTER Visits 1 Physical Therapy Visit Comments Patient Comments Pt found resting in bed, reports her pain is better this afternoon, is agreeable to PT. Therapy Pain Assessment Pain When Pain Assessed At Rest Pain Present Pain Present Pain Reported M4 PT-IP Mobility and Gait Start: 07/15/23 08:08 Freq: NEEDED Status: Active Protocol: Document 07/15/23 14:25 TS (Rec: 07/15/23 14:40 TS [id number]) PT-Bed Mobility Assessment Supine to Sit Supine to Sit Independent,Head of Bed Elevated Sit to Supine Sit to Supine Independent,Head of Bed Elevated Scooting Scooting to Edge of Bed Independent PT-Transfer Assessment Sit to and From Stand Sit to and from Stand Standby Assistance,Use of Upper Extremities Equipment Transfer Assistive Device Gait Belt,Front Wheeled Walker Orthotic/Prosthetic Devices or Brace: No Comments Mobility Comments Supine to sit Ind with BUE support. STS from bed with FWW , pt demonstrates good awareness and ability to perform NWBering on LLE. She ambulated with FWW NWB with hop steps ~15' SBA, demonstrates good balance. Pt was left back in bed, all needs met. Gait Assessment Gait Gait Assistance Required: Standby Assistance Distance (Feet) 15 Able to Maintain Weight Bearing Status Yes During Gait Assistive Devices Assistive Device Gait Belt,Front Wheeled Walker Orthotic/Prosthetic Devices or Brace: No Gait Deviations General Gait Pattern Antalgic Factors Limiting Gait Function Factors Limiting Gait Function Decreased Activity Tolerance, Difficulty Following Directions,Limited Range of Motion,Pain,Poor Balance PT-Balance Assessment Sitting Balance and Reactions Static Sitting Balance Ability Good Dynamic Sitting Balance Ability Good Standing Balance and Reactions Static Standing Balance Ability Good Dynamic Standing Balance Ability Fair Device Used RW M5 PT-IP Objective Assessments Start: 07/15/23 08:08 Freq: NEEDED Status: Active Protocol: Document 07/15/23 10:16 MB (Rec: 07/15/23 10:28 MB [id number]) Orientation Orientation/Cognition Level of Alertness Alert Orientation Name,Age,Birthday,Month,Date, Year,Day of Week,Place, Situation Language Function Ability No Deficits Noted Safety Awareness Decreased Safety Awareness Memory Description No Deficits Noted Gross Range of Motion Upper Extremity ROM Assessment Within Functional Limits Lower Extremity ROM Assessment Left Impaired Impairments Left ankle in splint post-op, other LE joints functional Strength Upper Extremity Strength Assessment Within Functional Limits Lower Extremity Strength Assessment Left Impaired Hip WNLs Knee WNLs Ankle In splint M6 PT-IP Treatment Start: 07/15/23 08:08 Freq: NEEDED Status: Active Protocol: Document 07/15/23 14:25 TS (Rec: 07/15/23 14:40 TS [id number]) Physical Therapy Treatment Education Education Provided Weight Bearing Status,Safety M7 PT-IP Assessment and Plan Start: 07/15/23 08:08 Freq: NEEDED Status: Active Protocol: Document 07/15/23 14:25 TS (Rec: 07/15/23 14:40 TS [id number]) PT Summary Assessment and Plan Potential Rehabilitation Potential Good Summary Impairments Pain,Balance,Coordination,Bed Mobility,Transfers,Gait, Activity Tolerance Progress Towards Goals Progressing Toward Goals Assessment Summary Tanna continues to do well with her mobility. She continues to be Ind with all bed mobility. She demonstrates good awareness of her NWB precaution with STS and gait. Her pain is better controlled this afternoon. PT is recommending home with 24/ assist and oupatient PT/HHPT. Goals Bed Mobility Goal Independent Transfer Goal Independent,Front Wheeled Walker Gait Goal Independent,Front Wheel Walker Gait Distance 25 Days to Meet Goals 2 Frequency of Treatment Frequency Of Treatment Twice a Day Treatment Plan Physical Therapy Treatment Plan Bed Mobility Training,Transfer Training,Gait Training, Therapeutic Exercise,Balance Retraining,Post Op Education, Discharge Planning,Hot or Cold Pack Weight Bearing Status Weight Bearing Status Touch Down Weight Bearing Allowed Weight Bearing Amount (enter % NWB to TDWB LLE, spint for 2 or #) (%) weeks Recommendations To Nursing Amount of Assist Needed 1 Person Assist Discharge Recommendations PT Discharge Recommendations Home with 30/11 Assist Available,Home Health, Outpatient PT Other Discharge Recommendations HHPT and nsg as appropriate Transportation Needs at Discharge Private Vehicle
--- NOTE | 2023-07-15 18:19 | PM.PNPO.1 ---
Subjective Subjective Date Patient Seen: 07/15/23 Interval history: POD 1 L TTA stayed for PT/OT X2 today (last visit in late afternoon 07/14 rec 1 person assist) also with postop anemia. length of distance to home (2hour drive) anticipate dc home tomorrow AM pt has meds already from clinic NWB/TT for balance LLE lovenox for DVT prophy Exam Vital Signs (past 8 hours): Oxygen Delivery Method Room Air Oxygen Flow Rate 0 Objective Labs 07/15/23 10:42 Labs: Laboratory Results - last 24 hr 07/15/23 10:42 Hgb 10.3 L Hct 30.7 L PFSH Medical History (Updated 07/13/23 @ 08:20 by Mary Herrera, RN) History of prosthetic unicompartmental arthroplasty of left knee (1997) Depression Psoriasis Hypothyroidism Goiter Osteoma Diverticulitis (04/19/18) Elevated LFTs Pyloric stenosis Impaired fasting glucose Sleep apnea HTN (hypertension) Surgical History (Updated 07/13/23 @ 08:20 by Mary Herrera RN) Hx of appendectomy (02/05/17) Hx of bilateral cataract extraction History of total right knee replacement History of total left knee replacement History of surgery Social History household members: spouse Smoking Status: Never smoker Assessment & Plan Post-op Postoperative Procedures: Procedures Operation Date: 07/14/23 08:45 Actual Procedure Side Surgeon p Total Ankle Arthroplasty, Ligamentous balancing Left Ivett Allred MD s Achilles Lengthening Left Ivett Allred MD Postoperative day: 1 Postoperative status: doing well and anemia Postoperative plan: routine post-op care Postoperative plan narrative: NWB/TTWB LLE lovenox for DVT prophy ( has rx) dc home tomorrow f/u as scheduled with ORTHO Time Spent With Patient Time with patient: less than 15 minutes Quality VTE Deep Vein Thrombosis/Pulmonary Embolism Present on Admission: No
--- NOTE | 2023-07-15 18:53 | PC.NURSE ---
Day shift: Notified GILLIAN Hamilton of patient's inadequate pain control this AM with oxycodone and IV dilaudid. She added Ibuprofen + APAP with no relief. Added PO dilaudid - patient went from rating her pain 10/10 to rating it a 1/10. CMS intact. Notable serosanguinous drainage coming out of splint/jalen on patient's heel. GILLIAN Hamilton at bedside to inspect. She reinforced dressing. No additional drainage visualized, GILLIAN Hamilton added ABD pads x 2 + new jalen wrap. Plan for patient to discharge home tomorrow. Will continue to monitor.
[2023-07-15 20:03] VITALS: BP 110/67; PULSE 62
[2023-07-15] MEDS: SENNOSIDES 8.6 MG TABLET 17.2 MG PO (20:03)
[2023-07-15] MEDS: PRAVASTATIN 20 MG TABLET 40 MG PO (20:03)
[2023-07-15 20:46] VITALS: BP 110/67; PULSE 62; RESP 16; TEMP 36.6; O2SAT 97
--- NOTE | 2023-07-16 00:33 | PC.NURSE ---
clinical psychology professor: Patient has complaints of 7-8/10 pain in LLE. Scheduled post-op medications + 10mg Oxycodone given w/ no effect. Patient states that oxycodone is not effective and that PO Dilaudid is working for her. Refusing to take oxycodone currently. Drsg on left ankle is CDI, CMS intact, leg is elevated. Vital signs are stable. Plan of care ongoing.
[2023-07-16] MEDS: ACETAMINOPHEN 325 MG TABLET 650 MG PO ×2 (02:31→08:27)
[2023-07-16] MEDS: IBUPROFEN 600 MG TABLET PO ×2 (02:31→08:28)
[2023-07-16] MEDS: THYROID, PORK 30 MG TABLET 75 MG PO (06:15)
[2023-07-16] MEDS: LEVOTHYROXINE 25 MCG TABLET PO (06:15)
--- NOTE | 2023-07-16 07:10 | PM.DS.1 ---
History of Present Illness History of Present Illness Chief complaint: OPB Narrative: Tanna is POD#2 s/ p left total ankle arthroplasty, left achilles tendon lengethening, Modified Brostrom Ruelas lateral ligament reconstruction by Dr. Allred. Patient reports she is doing significantly better today than yesterday, pain is under much better control. And she expresses significant reduction in anxiety since her dressing has not drained since I changed yesterday. Has crutches, knee scooter and wheelchair at home to be used in the post-op periods while she is touch down weight bearing only. Lives with who is willing and able to provide addition care to patient during her recovery. She states she feels comfortable d/c to home today. Denies fever, chills, chest pain, shortness of breath, nausea, vomiting. Discharge Providers Provider Discharge Date: 07/16/23 Primary care physician: Giuliana Constantino MD Consults: 07/14/23 14:49 Consult to Discharge Planning Routine Comment: Consult to Physical Therapy Evaluate & Treat Comment: TTWB LLE Physician Instructions: Evaluate and Treat 07/14/23 16:30 Consult to Dietitian, Adult Routine Comment: Reason For Exam: 30 pound weight loss unintentional 07/15/23 10:01 Consult to Physical Therapy Evaluate & Treat Comment: Safe Home Mobility Physician Instructions: Front Wheeled Walker Discharge provider: Kirstie Hamilton PA-C Summary Hospital Course Discharge Diagnosis: Stable s/ p left total ankle arthroplasty, left achilles tendon lengethening, Modified Brostrom Ruelas lateral ligament reconstruction for 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 Hospital Course: Hospital course complicated by poor pain control. Exam Vital Signs (past 8 hours): Oxygen Delivery Method Room Air Oxygen Flow Rate 0 Narrative Exam Narrative: patient lying comfortably in bed during interview today Const General: cooperative, healthy appearing and comfortable Resp Effort & Inspection: normal respiratory effort and able to speak in complete sentences Cardio Rate: regular rate Other: Brisk capillary refill. Skin Other: Patient has a plaster splint with cast padding and two ABD in place over the posterior ankle. There are two NILTON bandages around this, no drainage or seepage through the new dressings since yesterday. Neuro General: patient alert, patient awake and patient oriented x3 Other: Sensation intact to all toes equally, bilaterally. Extrem Other: Wiggles all left toes equally. Calves soft and non-tender bilaterally. Psych Appearance: grossly normal Speech and Movement: speech and movement normal Objective Labs 07/15/23 10:42 Labs: Laboratory Results - last 24 hr 07/15/23 10:42 Hgb 10.3 L Hct 30.7 L [facility] Medical History (Updated 07/13/23 @ 08:20 by Mary Herrera RN) History of prosthetic unicompartmental arthroplasty of left knee (1997) Depression Psoriasis Hypothyroidism Goiter Osteoma Diverticulitis (04/19/18) Elevated LFTs Pyloric stenosis Impaired fasting glucose Sleep apnea HTN (hypertension) Surgical History (Updated 07/13/23 @ 08:20 by Mary Herrera RN) Hx of appendectomy (02/05/17) Hx of bilateral cataract extraction History of total right knee replacement History of total left knee replacement History of surgery Social History household members: spouse Smoking Status: Never smoker Discharge Assessment & Plan Assessment and Plan Assessment: stable s/p left total ankle arthroplasty, left achilles tendon lengethening, Modified Brostrom Ruelas lateral ligament reconstruction. Plan of Treatment: Plan to discharge to home today. 1) Keep cast/dressing clean and dry. May bathe - but cast/dressing must remain dry. 2) Continue multimodal pain control. Significant amount of time spent counseling patient on pain medication, expected pain after surgery and risks of opioids. She can use ice to the LLE bust must be careful to prevent melting ice from saturating into the splint/cast. Patient denies tramadol or hydrocodone Rx, she has post-op oxycodone at home but states she does not plan on taking this as she feels oxycodone does not work for her. 3) Touch down weight bearing only. Must use use crutches or a walker for ambulation. 4) Lovenox 40 mg subcutaneous daily injections starting postop day 1 for 4 weeks for DVT prophylaxis followed by ASA 325 QD for 2 weeks. 5) Follow up at [facility] in 2 weeks for a postop appointment. All of the patient's questions were answered, she is in agreement with the plan. Discharge Plan Discharge Plan Patient Disposition: Home Discharge orders & Medications Discharge Orders: Discharge (Order); Ordered 07/16/23 Ordered By: Kirstie Hamilton Prescriptions: Continued losartan 50 mg Tablet 50 mg PO BID pravastatin 40 mg Tablet 40 mg PO BEDTIME spironolactone 25 mg Tablet 25 mg PO DAILY levothyroxine 25 mcg Tablet 25 mcg PO DAILY amlodipine 10 mg Tablet 10 mg PO DAILY metoprolol tartrate 25 mg Tablet 25 mg PO BID thyroid (pork) [[place] Thyroid] 15 mg Tablet 15 mg PO DIRECTED Patient Comments: Takes 4 days of the week + 60mg thyroid (pork) [[place] Thyroid] 60 mg Tablet 60 mg PO DIRECTED Patient Comments: Takes 4 days a week Follow up/Referrals: Ivett Allred MD [Physician] - (Follow up as scheduled at [facility]) Giuliana Constantino MD [Primary Care Provider] - Diet/Activity/Treatments Diet: Diet as Tolerated Activity: NWB LLE-non weight bearing to left lower extremity. Cold/Heat Therapy: Elevated heart level. Ice 20 minutes/hour while awake. Other treatments: At-Home Instructions - Dr. Allred Surgery: Total ankle arthroplasty left Cast/Splint/Dressing Care Instructions 1) Keep cast/dressing clean and dry. 2) May bathe - but cast/dressing must remain dry. 3) Should the cast become wet, you need to call your physician's clinic immediately for cast removal and replacement. Moisture can cause skin breakdown and lead to infection if left untreated. 4) Do not stick any sharp object down the cast to itch, as this can cause scrapes/cuts/punctures which can lead to infection. 5) Observe for increasing pain in the extremity with the cast, finger/toe-tips turning blue/purple, or numbness and tingling in your toes/fingers. Should any of these symptoms arise, you need to be seen immediately for evaluation of swelling and increasing compartment pressures within your affected extremity. 6) Keep your affected extremity elevated - Toes Above your Nose? - This is aviles in the first two weeks after surgery to minimize swelling. 7) You may ice your extremity, being careful to prevent melting ice from saturating into the splint/cast. Activity No heavy lifting greater than 10 [address] while on narcotic pain medication. Do not get your dressing/cast/splint wet! You must remain non-weight bearing on your operative extremity. Use crutches or a walker for ambulation. No driving until you are otherwise instructed by your physician. This will be addressed at your first follow-up appointment. Discharge Pain Medications You will be given a prescription for pain medication. You should start taking this the same day after your surgery. Wean off as tolerated. Do not wait to take the pain medication until the pain is severe, as it will be difficult to catch up once this occurs. The pain medication usually reaches its full effect ~1 hour after ingesting. If you have been sent home on Colace, this medication should be taken until you are off all narcotic (i.e. Vicodin, Percocet, Oxycodone, etc) pain medications, to prevent constipation. You may also obtain this or another stool softener over the counter to prevent or alleviate constipation. Percocet or Vicodin have Tylenol in their ingredient lists. You must be careful not to exceed 3,000mg (3 grams) of Tylenol, from all sources, within a single 24-hr period. This means that you may not take more than 10 pills within a 24-hr period. Do NOT take Regular or Extra Strength Tylenol when taking your Percocet or Vicodin medications. -IF you have been given a Toradol/ketorolac prescription, this is a very strong anti-inflammatory. Do not take byjn-lrp-kkcckxw anti-inflammatories (ibuprofen, Aleve, Advil, Motrin) while taking the Toradol/ketorolac. Once you are finished with this prescription, then you can resume yynv-qeb-agkvjjo anti-inflammatories. You can still take your narcotic pain medication and Tylenol while taking the Toradol/ketorolac. -Some common side effects of the narcotic pain medications (Percocet, Oxycodone, Vicodin, etc.) include nausea and itching. Benadryl is a great over the counter medication that helps calm your stomach, decreases your anxiety levels, and minimizes the itching. You can easily purchase this at your local pharmacy as an fpgn-[id number]-[id number] medication. Please abide by the instructions as printed on the bottle. If your nausea persists, make sure to take small amounts of crackers or other refrigerated national truck driver foods. -If have been given oxycodone 5 mg tablets, try to take the smallest dose needed to control your pain. Generally start with 5 mg every 4 hours as needed for pain. However you can increase this if you are having significant pain. The maximum dosage for oxycodone would be 15 mg or three (5 mg) tablets p.o. every 3 hours as needed for pain. As soon as pain is better controlled you should decrease the amount of medication your taking and increase the interval between doses. If you are given Percocet or Vicodin or Dennis these are medications with the narcotic and Tylenol in them and they were dosing will need to keep in mind the maximum daily dosages for Tylenol/acetaminophen. Follow-Up/Emergency Contacts Please call for an appointment in either [place] or [place], if one has not been scheduled. Follow up 2 weeks after surgery. [phone] Contact the office if you have any of the following: ? Painful swelling or numbness ? Unrelenting pain ? Fever (over 101?- it is normal to have a low grade fever for the first day or two following surgery) or chills ? Redness around the incisions ? Color changes ? Continuous bleeding or drainage from the incision (a small amount is expected) ? Excessive nausea or vomiting ? Difficulty breathing If you have an emergency that requires immediate attention such as shortness of breath or chest pain, call 911 or proceed to the nearest emergency room. Blood Clot Prophylaxis You will need to complete a total 4 weeks of Lovenox 40 mg subcutaneous injection daily starting postoperative day 1. Pain Medications: It is the policy of [facility] that narcotic medications will only be refilled during office hours. Additionally, due to the alarming rate of narcotic pain medication abuse/dependence, it has become necessary for physician practices to closely manage patient use of prescription narcotic pain relievers, such as Vicodin (Dennis), Percocet, and Oxycodone products. Narcotic pain management in the postoperative period may not exceed 6 weeks. If narcotic pain management is required beyond 90 days, then a referral to a Chronic Pain Specialist will be made. If a request for a medication prescription has been made, the physician must review your chart prior to authorizing the request. Please be patient with office staff. If you call during patient hours, your call may not be returned until the end of the day. Patient has been prescribed for postoperative medications from the clinic and these have already been sent to our outpatient pharmacy and she is picked up. They include: 1. Lovenox 40 mg subcutaneous daily injections starting postop day 1 for 4 weeks for DVT prophylaxis 2. Oxycodone 5 mg tablets take 1 to 2 tablets every 4 hours as needed for pain 3. Zofran 4 mg tablets sublingual take every 8 hours as needed for nausea and vomiting. --the patient may take coys-unw-xdgvsfw medications Tylenol, ibuprofen. Benadryl as an option for itching. If there is any stomach/gastric irritation is recommended to take Pepcid or omeprazole --for stool softener and prevention of constipation recommend Colace 100 mg b.i.d. or MiraLax 1 packet daily, titrate as needed for constipation. Dr. Ivett Allred [address] [email or web address] Skin/Wound/Dressing Care Report to your healthcare provider any signs of infection, such as:: chills, fever, night sweats, unusual drainage and unusual redness Visit Report/Discharge Packet Instructions: DI for Prescription Opioid Use Stand Alone Forms: Patient Portal/API Discharge Data Primary Care Provider: Giuliana Constantino Attending Provider: Ivett Allred Quality VTE Deep Vein Thrombosis/Pulmonary Embolism Present on Admission: No
[2023-07-16 08:00] VITALS: BP 107/44; PULSE 63; RESP 16; TEMP 36.2; O2SAT 96
[2023-07-16] MEDS: FAMOTIDINE 20 MG TABLET PO (08:27)
[2023-07-16] MEDS: polyethylene glycoL 3350 17 GM POWD.PACK PO (08:28)
[2023-07-16] MEDS: DOCUSATE 100 MG CAPSULE PO (08:28)
[2023-07-16] MEDS: ENOXAPARIN 40 MG/0.4 ML SYRINGE SUBCUT (08:28)
[2023-07-16] MEDS: METOPROLOL IR 25 MG TABLET PO (08:28)
--- NOTE | 2023-07-16 08:57 | CM.DPC ---
DCP Cont. Reviewed EMR and team rounds for status updates. Per Ortho, plan is for pt to d/c home today with her providing for her care needs. She has a f/u appt. already set up in 2-weeks for Ortho wound check. will transport her home. No further needs idenifeid for DCP at this time.
[2023-07-16] MEDS: HYDROMORPHONE 2 MG TABLET PO (10:39)
--- NOTE | 2023-07-16 10:50 | PC.NURSE ---
Day shift: Discharge information gone over with patient and patient's spouse. Patient stated understanding, all questions answered. All belongings with patient. PIV d/c'ed prior to d/c. PCT Digna escorted patient to exit via wheelchair.
== END 2023-07-16 10:54 | disposition home or self-care (01) ==
LOC: OR 07:02 → AC 07:02
PROVIDERS: Physician Assistant Surgical; Family Provider Nurse Practitioner Family; PCP Internal Medicine; Referring Provider Orthopaedic Surgery Foot and Ankle Surgery; Visit Provider Orthopaedic Surgery Foot and Ankle Surgery
PROC: (CPT 27702; principal; 2023-07-14 08:45)
PROC: (CPT 27685; 2023-07-14 08:45)
DX: M19.072 Primary osteoarthritis, left ankle and foot (principal); M67.02 Short Achilles tendon (acquired), left ankle; M25.772 Osteophyte, left ankle
CPT/HCPCS: 27702; 27685; 27698; 36415; 73610; 76000; 82962; 85014; 85018; 97161; 97530; C1776; A9270; J0330; J0690; J1100; J1170; J1650; J2405; J2704; J3010